=== PATIENT | male | born 1955 ===

== ENCOUNTER 2018-02-12 20:39 | Emergency (ER) | payer OTHER ==
[2018-02-12 20:45] VITALS: BP 160/90; PULSE 85; TEMP 97.9; BMI 22.9
--- NOTE | 2018-02-12 20:45 | PDOC ---
History of Present Illness - General History Source: Patient Exam Limitations: No Limitations - History of Present Illness Initial Comments: 02/12/18 21:35 A portion of this note was documented by scribe services under my direction. I have reviewed the details of the note, within reason, and agree with the documentation. The case summary and management plan written by me. X-rays read by me were all negative for any acute fractures dislocation or pathology patient had x-rays of the hand is bilateral left fingers, nasal bones and left knee Patient took 2 Aleve for the pain I'll give him some acetaminophen here in the emergency room. Patient discharged home will follow-up with his primary care doctor Patient also given tetanus in the emergency department <Giselle Merlos I - Last Filed: 02/12/18 21:35> - General History Source: Patient Exam Limitations: No Limitations - History of Present Illness Initial Comments: 02/12/18 21:39 The patient is a 62 year old male with no significant PMH of who presents to the emergency department with injury s/p fall earlier today. The patient reports that he was at home when he tripped and fell over a piece of metal. The patient reports that he fell onto his two hands but, scraped his knee. The patient reports associated neck and back pain secondary to fall. The patient states that he experienced some nasal bleeding s/p fall as well. He reports taking 2 aleve pain relief pills prior to arrival. The patient denies hitting his head or any loc. He denies any headache, dizziness, weakness, tingling or numbness. The patient denies any other symptoms. He denies any chest pain, or shortness of breath. He denies fever, chills, nausea, vomit, diarrhea , constipation or urinary symptoms. The patient denies any other complaints. PAST MEDICAL HISTORY: no significant history PAST SURGICAL HISTORY: no significant history FAMILY HISTORY: no pertinent history SOCIAL HISTORY: Pt lives with family and is employed. MEDICATIONS: reviewed ALLERGIES: As per nursing notes General: No fevers or chills, no weakness, no weight loss HEENT: No change in vision. No sore throat,. No ear pain CardioVascular: No chest pain or shortness of breath Respiratory:No cough, or wheezing. Gastrointestinal: no nausea, vomiting, diarrhea or constipation, No rectal bleeding Genitourinary: No dysuria, hematuria, or frequency Musculoskeletal: (+) neck, back, hand and knee pain. No swelling Neurologic: No headache, vertigo, dizziness or loss of consciousness Psychiatric: nor depression Skin: No rashes or easy bruising Endocrine: no increased thirst or abnormal weight change Allergic: no skin or latex allergy All other systems reviewed and normal GENERAL: The patient is awake, alert, and fully oriented, in no acute distress. HEAD: (+) nose has questionable deformity with tenderness. Head Normal with no signs of trauma. EYES: Pupils equal, round and reactive to light, extraocular movements intact, sclera anicteric, conjunctiva clear. EXTREMITIES: (+) right hand tender over thenar eminence with swelling. Non tender over scaphoid. Left 4th and 5th finger, tender over proximal pharynx with ecchymosis. Neuro intact. Normal range of motion. Left knee has small abrasion with swelling and tenderness over anterior knee, no palpable effusion, decreased ROM secondary to pain. Anterior left knee has small abrasions neuro and vascular intact. Discomfort to upper shoulder and back laterally. NEUROLOGICAL: Normal speech, normal gait, spine nontender to palpation. PSYCH: Normal mood, normal affect. SKIN: Warm, Dry, normal turgor, no rashes or lesions noted. <Elfego Gamez - Last Filed: 02/12/18 21:40> - General Chief Complaint: Injury Stated Complaint: S/P FALL Time Seen by Provider: 02/12/18 20:45 Past History - Past Medical History COPD: No Diabetes: Yes - Suicide/Smoking/Psychosocial Hx Smoking History: Unknown if ever smoked Have you smoked in the past 12 months: No Number of Cigarettes Smoked Daily: 0 Information on smoking cessation initiated: No Hx Alcohol Use: No Drug/Substance Use Hx: No Substance Use Type: None <Giselle Merlos I - Last Filed: 02/12/18 21:35> <Elfego Gamez - Last Filed: 02/12/18 21:40> - Past Medical History Allergies/Adverse Reactions: Allergies Allergy/AdvReac Type Severity Reaction Status Date / Time tolterodine [From Detrol] Allergy Verified 02/12/18 20:44 Home Medications: Ambulatory Orders Glipizide [Glucotrol] 10 mg PO BID 02/12/18 Metformin HCl [Glucophage] 1,000 mg PO BID 02/12/18 *Physical Exam - Vital Signs Last Vital Signs Temp Pulse Resp BP Pulse Ox 97.9 F 85 14 160/90 98 02/12/18 20:40 02/12/18 20:40 02/12/18 20:40 02/12/18 20:40 02/12/18 20:40 <Giselle Merlos I - Last Filed: 02/12/18 21:35> - Vital Signs Last Vital Signs Temp Pulse Resp BP Pulse Ox 97.9 F 85 14 160/90 98 02/12/18 20:40 02/12/18 20:40 02/12/18 20:40 02/12/18 20:40 02/12/18 20:40 <Elfego Gamez - Last Filed: 02/12/18 21:40> ED Treatment Course - Medications Given in the ED: ED Medications Discontinued Medications Generic Name Dose Route Start Last Admin Trade Name Freq PRN Reason Stop Dose Admin Diphtheria/Tetanus/Acell Pertussis 0.5 ml 02/12/18 21:16 02/12/18 21:20 Boostrix - IM 02/12/18 21:17 0.5 ml ONCE ONE Administration <Elfego Gamez - Last Filed: 02/12/18 21:40> *DC/Admit/Observation/Transfer <Giselle Merlos I - Last Filed: 02/12/18 21:35> - Attestations Scribe Attestion: 02/12/18 21:40 Documentation prepared by Elfego Gamez, acting as medical case worker for Giselle Merlos MD. <Elfego Gamez - Last Filed: 02/12/18 21:40> Diagnosis at time of Disposition: Multiple abrasions Contusion of nose Qualifiers: Encounter type: initial encounter Qualified Code(s): S00.33XA - Contusion of nose, initial encounter Contusion of hand including fingers Qualifiers: Encounter type: initial encounter Laterality: left Qualified Code(s): S60.222A - Contusion of left hand, initial encounter Contusion of hand Qualifiers: Encounter type: initial encounter Laterality: right Qualified Code(s): S60.221A - Contusion of right hand, initial encounter Contusion of left patella Qualifiers: Encounter type: initial encounter Qualified Code(s): S80.02XA - Contusion of left knee, initial encounter - Discharge Dispostion Disposition: HOME Condition at time of disposition: Good - Referrals Referrals: Adryan Don [Primary Care Provider] - - Patient Instructions Additional Instructions: Tylenol or Motrin as needed for the pain. You'll didn't injure experience discomfort and soreness over the next 24-48 hours after that things should start to get better is important that you take an anti-inflammatory ibuprofen 3 tablets 3 times a day with food for at least the next week to help with the healing process. Return to the emergency department immediately with ANY new, persistent or worsening symptoms. Continue any medications as previously prescribed by your physician. You should follow up with your primary doctor as soon as possible regarding today's emergency department visit. . Please make sure your doctor reviews the results of your emergency evaluation. Thank you for coming to the Emergency Department today for your care. It was a pleasure to see you today. Please note that your evaluation is INCOMPLETE until you follow-up with your doctor. - Post Discharge Activity
[2018-02-12] MEDS ORDERED: DIPHTH,PERTUSS(ACELL),TET 0.5 ML DISP.SYRIN IM ONE (21:16)
== END 2018-02-12 21:50 | disposition home or self-care (01) ==
LOC: FER 20:39
PROC: 3E0234Z Introduction of Serum, Toxoid and Vaccine into Muscle, Percutaneous Approach (ICD-10-PCS; principal; 2018-02-12)
DX: S00.33XA Contusion of nose, initial encounter (principal); S60.222A Contusion of left hand, initial encounter; S60.221A Contusion of right hand, initial encounter; S80.02XA Contusion of left knee, initial encounter; W18.09XA Striking against other object with subsequent fall, initial encounter; Y93.89 Activity, other specified; Y92.009 Unspecified place in unspecified non-institutional (private) residence as the place of occurrence of the external cause
CPT/HCPCS: 70160-TC-FY; 73130-TC-LR-FY; 73130-TC-RT-FY; 73562-TC-LT-FY; 90715; 99282-25